=== PATIENT | male | born 1985 | race Two or more races ===

== ENCOUNTER 2023-04-01 20:07 | Emergency (ER) | payer OTHER ==
[~2023-04-01] VITALS: Ht 170.2 cm; Wt 77.1 kg
== END 2023-04-01 21:58 | disposition home or self-care (01) ==
LOC: ER 20:07
DX: R07.0 Pain in throat (principal); Z20.822 Contact with and (suspected) exposure to COVID-19

== ENCOUNTER 2024-12-13 10:55 | Emergency (ER) | payer OTHER ==
[~2024-12-13] VITALS: Ht 175.3 cm; Wt 81.6 kg
[2024-12-13] MEDS ORDERED: LORazepam 1 MG TABLET PO ONE (12:30)
[2024-12-13] MEDS ORDERED: LIDOCAINE HCL 1%/EPINEPHRINE 20ML VIAL IJ ONE (12:30)
[2024-12-13] MEDS ORDERED: TETANUS & DIPHTHERIA TOX,ADULT 0.5 ML VIAL IM ONE (12:30)
[2024-12-13] MEDS ORDERED: SILVER SULFADIAZINE 50 GM JAR TOP ONE (12:30)
[2024-12-13] MEDS ORDERED: POVIDONE-IODINE 118 ML BOTT TOP ONE (14:32)
[2024-12-13] MEDS ORDERED: DIPHTH,PERTUSS(ACELL),TET VAC 0.5 ML SYRINGE IM ONE (14:32)
[2024-12-13] MEDS ORDERED: BACITRACIN-NEOMYCIN-POLYMYXIN 0.9 GM PACKET TOP ONE (15:06)
[2024-12-13] MEDS ORDERED: NEOMYCIN/BACITRACIN/POLYMYXINB 28.35 GM OINT..GM. TOP ONE (15:15)
== END 2024-12-13 15:26 | disposition home or self-care (01) ==
LOC: ER 10:56
DX: S01.81XA Laceration without foreign body of other part of head, initial encounter (principal); W18.39XA Other fall on same level, initial encounter; Y93.E1 Activity, personal bathing and showering; Y92.012 Bathroom of single-family (private) house as the place of occurrence of the external cause; Y99.9 Unspecified external cause status; F10.10 Alcohol abuse, uncomplicated